=== PATIENT | male | born 1950 | race Caucasian/White ===

== ENCOUNTER → 2016-11-06 | Outpatient (REF) | payer BC ==
[~2016-11-06] MED LIST: /OXAZ10CA; /PANT40TA; /THIA10TA; /THIA10TA OR; ASPI81TA45 OR; ATEN25TA PO; ATEN50TA2 OR; ATIV1TAB2; ATOR1TAB21 PO; BABY81CH; FOLI1TAB; FOLI1TAB OR; GLUC500T; JANU100T PO; JANUVIA; LISI5TAB OR; METF500T4 OR; MULTIVIT; OXAZ15CA2 OR; PRIN20TA3; SILD50TA PO; TENO25TA; TRIC145T19; VITMTA PO; VYTO10TA5; januvia PO
== END ==
LOC: M LAB REF 12:07
PROVIDERS: ATTEND Internal Medicine
DX: F10.21 Alcohol dependence, in remission (principal)
CPT/HCPCS: 82977; G0480

== ENCOUNTER → 2017-01-23 | Outpatient (REF) | payer MEDICARE | LOC: M LAB REF 13:02 | PROVIDERS: ATTEND Internal Medicine | DX: F10.21 Alcohol dependence, in remission (principal) ==

== ENCOUNTER 2017-01-28 14:54 | Inpatient (IN) | payer MEDICARE ==
[~2017-01-28] VITALS: Ht 167.6 cm; Wt 89.3 kg
[~2017-01-28 14:54] MED LIST changes: -ATEN25TA PO; -ATOR1TAB21 PO; -JANU100T PO; -SILD50TA PO; -VITMTA PO
[2017-01-28] MEDS ORDERED: LORazepam 2 MG/ML VIAL (J2060) IV STA (15:23)
[2017-01-28] MEDS ORDERED: LORazepam 1 MG TAB PO ONE (15:30)
[2017-01-28] MEDS ORDERED: MULTIVITAMIN -ADULT INJECTION 10 ML, THIAMINE INJection 100 MG, FOLIC ACID 1 MG in NS 1... IV ONE (15:30)
[2017-01-28 16:03] LABS: BASO # 0.1 10^3/uL (0.0-0.2); BASO % 0.7 % (0.0-1.0); EOS % 0.3 % (0.0-3.0); IMMATURE GRANULOCYTE % 0.2 % (0-0); LYMPH # 0.8 10^3/uL (1.5-4.5); LYMPH % 8.9 % (24.0-44.0); MEAN CORPUSCULAR HEMOGLOBIN 34.5 pg (27.0-33.0); MEAN CORPUSCULAR HGB CONC 33.6 g/dl (32.0-36.5); MEAN CORPUSCULAR VOLUME 102.5 fl (80.0-96.0); MONO # 1.3 10^3/uL (0.0-0.8); MONO % 14.3 % (0.0-5.0); NEUTROPHILS # 6.7 10^3/uL (1.8-7.7); NEUTROPHILS % 75.6 % (36.0-66.0); PLATELET COUNT, AUTOMATED 128 10^3/uL (150-450); RED CELL DISTRIBUTION WIDTH 13.2 % (11.5-14.5); WHITE BLOOD COUNT 8.9 10^3/uL (4.0-10.0)
[2017-01-28] MEDS ORDERED: SILD50TA PO (16:07)
[2017-01-28] MEDS ORDERED: JANU100T PO (16:07)
[2017-01-28] MEDS ORDERED: ATEN25TA PO (16:07)
[2017-01-28] MEDS ORDERED: ATOR1TAB21 PO (16:07)
[2017-01-28] MEDS ORDERED: VITMTA PO (16:07)
[2017-01-28 16:28] LABS: ALBUMIN 3.4 GM/DL (3.2-5.2); ALBUMIN/GLOBULIN RATIO 0.85 (1.00-1.93); ALKALINE PHOSPHATASE 102 U/L (45-117); ALT/SGPT 121 U/L (12-78); ANION GAP 12 MEQ/L (8-16); AST/SGOT 158 U/L (15-37); BILIRUBIN,DIRECT 1.4 MG/DL (0.0-0.2); BILIRUBIN,TOTAL 2.3 MG/DL (0.2-1.0); BLOOD UREA NITROGEN 25 MG/DL (7-18); CALCIUM LEVEL 8.6 MG/DL (8.8-10.2); CARBON DIOXIDE LEVEL 25 MEQ/L (21-32); CHLORIDE LEVEL 100 MEQ/L (98-107); CREATININE FOR GFR 1.03 MG/DL (0.70-1.30); GLOMERULAR FILTRATION RATE > 60.0 (>49); GLUCOSE, FASTING 257 MG/DL (80-110); SODIUM LEVEL 137 MEQ/L (136-145); TOTAL PROTEIN 7.4 GM/DL (6.4-8.2)
--- NOTE | 2017-01-28 16:33 | REP ---
Chest two views HISTORY: Shortness of breath Comparison: 04/08/2011 The lungs are clear. The heart is normal in size. The pulmonary vasculature is normal in appearance. The bony structure is intact. IMPRESSION: No acute disease. Signed by Jules Foy MD 01/28/2017 04:24 P
[2017-01-28 17:55] LABS: METHADONE URINE NEGATIVE (NEGATIVE)
[2017-01-28] MEDS ORDERED: LORazepam 2 MG TAB PO PRN (18:15)
[2017-01-28] MEDS ORDERED: FUROSEMIDE 40 MG/4 ML VIAL (J1940) IV ONE (18:30)
[2017-01-28] MEDS ORDERED: DEXTROSE 50% 50 ML SYRINGE IV PRN (19:15)
[2017-01-28] MEDS ORDERED: GLUCOSE 4 GM CHEW TABLET PO PRN (19:15)
[2017-01-28] MEDS ORDERED: GLUCAGON FOR INJ 1 MG VIAL (J1610) SC PRN (19:15)
--- NOTE | 2017-01-28 19:18 | HPEPDOC ---
General Date of Admission Jan 28, 2017 at 18:01 Primary Care Physician: Jr Lemus Collins Attending Physician: MUNA TALBERT MD Chief Complaint The patient is a 67-year-old male admitted with a reason for visit of Alcohol Withdrawal. Source: Patient, Family Exam Limitations: No limitations History of Present Illness Mr. Diaz is a 67-year-old male who presents to the emergency department with tremors, gait unsteadiness, shortness of breath, diaphoresis. He has been an alcoholic in the past, he has gone through detox programs and successfully quit drinking, however approximately 4 months ago he did resume drinking. He admits to drinking approximately 1 L per day of wine. He states that his last drink was approximately Saturday night or Saturday morning (3 days ago) he had been tremulous, however this morning his symptoms were significantly worse even to the point where he was unable to walk, and he became extremely short of breath, therefore he decided to present to the emergency department. While in the emergency department he received a total of 2 mg of Ativan, and a banana bag him, and most of his symptoms have improved, he does remain quite tremulous however. Home Medications Scheduled Aspirin (Aspirin Ec Lo-Dose) 81 Mg Tab, 81 MG OR DAILY, (Reported) Atenolol (Atenolol) 25 Mg Tab, 25 MG PO DAILY, (Reported) Atorvastatin Calcium (Atorvastatin Calcium) 20 Mg Tab, 20 MG PO QHS, (Reported) Lisinopril (Lisinopril) 5 Mg Tab, 5 MG OR DAILY, (Reported) Multivitamins *[facility] STOCKED* (Thera M Plus *[facility] STOCKED*) 1 Tab Tab, 1 TAB PO DAILY, (Reported) Sitagliptin Phosphate (Januvia) 100 Mg Tab, 100 MG PO DAILY, (Reported) Scheduled PRN Sildenafil Citrate (Viagra) 50 Mg Tab, 50 MG PO ASDIRECTED PRN for ERECTILE DYSFUNCTION, (Reported) Allergies Coded Allergies: Penicillins (Verified Allergy, Unknown, 07/28/12) Penicillins Cross Reactors (Verified Allergy, Unknown, 07/28/12) Past Medical History Medical History Diabetes mellitus type 2 Hypertension Hyperlipidemia 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 Father of hyperthyroidism and heart failure around age 40. He has an aunt and a maternal grandmother who suffer from macular degeneration Social History * Smoker: former Smoker (he quit over 5 years ago, prior to that he smoked one pack per day for 40+ years) Alcohol: heavy (had quit previously, however in the past 4 months he had been drinking 1 L of wine per day, he quit approximately 3 days ago) Drugs: denies Recent Travel/Sick Contacts: Denies: Recent travel Psychosocial History: No pertinent psych hx Review of Symptoms Constitutional: Reports: Chills, Fever, Malaise, Weakness, Fatigue, Denies: Night Sweats ENT: Denies: Head Aches, Ear Pain, Dysphagia Skin: Reports: Bruising, Denies: Rash, Lesions, Breakdown Pulmonary: Denies: Dyspnea, Cough Cardiovascular: Denies: Chest Pain, Palpitations, Orthopnea, Paroxysmal Noc. Dyspnea, Lt Headedness Gastrointestinal: Denies: Nausea, Vomiting, Abdominal Pain, Diarrhea Genitourinary: Denies: Dysuria, Frequency, Incontinence, Retention Hematologic: Denies: Bruising, Bleeding Excessively Musculoskeletal: Denies: Neck Pain, Back Pain, Joint Pain, Muscle Pain, Spasms Neurological: Reports: Incoordination, Other Symptoms (tremors), Denies: Weakness, Numbness, Change in speech, Confusion Psych: Reports: Mood Normal, Denies: Depression, Memory Issues Physical Examination General Exam: Positive: Alert, Cooperative, Mild Distress Eye Exam: Positive: PERRLA, Conjunctiva & lids normal, EOMI, Sclera icteric ( mild) ENT Exam: Positive: Atraumatic, Mucous membr. moist/pink, Pharynx Normal Neck Exam: Positive: Supple, Other (spider telangiectasias noticed on the anterior chest), Negative: JVD, thyromegaly Chest Exam: Positive: Clear to auscultation, Normal air movement, Negative: Rales, Rhonchi, Wheezing Heart Exam: Positive: Tachycardic, Regular Rhythm, Normal S1, Normal S2, Negative: Murmurs, Rubs Telemetry: Positive: No significant arrhythmia Abdomen Exam: Positive: Normal bowel sounds, Soft, Hepatospenomegaly ( hepatomegaly noted approximately 3 cm below the right costal margin, spleen was not palpable), Other (obese abdomen, however it is not distended, there is no tenderness or guarding), Negative: Tenderness Extremity Exam: Positive: Edema (1+ pitting edema to just above the ankles bilaterally, left worse than right), Normal pulses, Negative: Clubbing, Cyanosis Skin Exam: Positive: Nl turgor and temperature, Negative: Breakdown, Lesion Neuro Exam: Positive: Normal Speech, Cranial Nerves 3-12 NL, Other (he does have a resting tremor, asterixis ) Psych Exam: Positive: Mental status NL, Mood NL, Oriented x 3 Vital Signs Vital Signs Date Time Temp Pulse Resp B/P (MAP) Pulse Ox O2 Delivery O2 Flow Rate FiO2 01/28/17 16:07 01/28/17 14:55 97.8 113 24 96 Nasal Cannula 2.0 Laboratory Data Labs 24H Laboratory Tests 2 01/28/17 15:55: Immature Granulocyte % (Auto) 0.2H, White Blood Count 8.9, Red Blood Count 4.35 , Hemoglobin 15.0, Hematocrit 44.6, Mean Corpuscular Volume 102.5H, Mean Corpuscular Hemoglobin 34.5H, Mean Corpuscular Hemoglobin Concent 33.6, Red Cell Distribution Width 13.2, Platelet Count 128L, Neutrophils (%) (Auto) 75.6H , Lymphocytes (%) (Auto) 8.9L, Monocytes (%) (Auto) 14.3H, Eosinophils (%) (Auto ) 0.3, Basophils (%) (Auto) 0.7, Neutrophils # (Auto) 6.7, Lymphocytes # (Auto) 0.8L, Monocytes # (Auto) 1.3H, Eosinophils # (Auto) 0.0, Basophils # (Auto) 0.1 , Immature Granulocyte # (Auto) 0.0, Nucleated Red Blood Cells % (auto) 0.0, Anion Gap 12, Glomerular Filtration Rate > 60.0, Calcium Level 8.6L, Aspartate Amino Transf (AST/SGOT) 158H, Alanine Aminotransferase (ALT/SGPT) 121H, Alkaline Phosphatase 102, Total Bilirubin 2.3H, Direct Bilirubin 1.4H, Total Creatine Kinase 122, Creatine Kinase MB 1.4, Creatine Kinase MB Relative Index 1.14, Troponin I < 0.02, Total Protein 7.4, Albumin 3.4, Albumin/Globulin Ratio 0.85L, Ethyl Alcohol Level < 0.003 01/28/17 17:21: Urine Amphetamines Screen NEGATIVE, Urine Benzodiazepines Screen NEGATIVE, Urine Opiates Screen NEGATIVE, Urine Methadone Screen NEGATIVE, Urine Barbiturates Screen NEGATIVE, Urine Phencyclidine Screen NEGATIVE, Urine Cocaine Metabolite Screen NEGATIVE, Urine Cannabinoids Screen NEGATIVE CBC/BMP Laboratory Tests 01/28/17 15:55 Red Blood Count 4.35, Mean Corpuscular Volume 102.5 H, Mean Corpuscular Hemoglobin 34.5 H, Mean Corpuscular Hemoglobin Concent 33.6, Red Cell Distribution Width 13.2, Neutrophils (%) (Auto) 75.6 H, Lymphocytes (%) (Auto) 8.9 L, Monocytes (%) (Auto) 14.3 H, Eosinophils (%) (Auto) 0.3, Basophils (%) ( Auto) 0.7, Neutrophils # (Auto) 6.7, Lymphocytes # (Auto) 0.8 L, Monocytes # ( Auto) 1.3 H, Eosinophils # (Auto) 0.0, Basophils # (Auto) 0.1 Problems (1) Alcohol withdrawal Status: Acute (2) Type 2 diabetes mellitus Status: Chronic (3) Hypertension Status: Chronic (4) Hyperlipidemia Status: Chronic (5) Combined congestive systolic and diastolic heart failure Status: Chronic (6) Thrombocytopenia Status: Chronic (7) Macrocytosis Status: Chronic (8) History of hemicolectomy Status: Chronic (9) Hyperbilirubinemia Status: Acute (10) Transaminitis Status: Acute (11) Prerenal azotemia Status: Acute Plan / VTE VTE Prophylaxis Ordered?: Yes (teds and sequentials given his thrombocytopenia and easy bruisability) Plan Plan Will prescribe Serax scheduled as well as [facility] protocol for as needed lorazepam. He is already been started on a banana bag in the ED, we will provide him with daily supplementation and folic acid and thiamine. Although beta blockers are not recommended for the treatment of tremor in DT's, we will continue him on his usual home dose of atenolol such that he will not suffer from tachycardia and hypertension. We will continue his home dose of Januvia, although it does appear that he has uncontrolled diabetes mellitus, therefore we will also do sliding scale insulin before meals and at bedtime. Given his history of severe combined systolic and diastolic congestive heart failure and his edema on exam, I will administer one dose of IV Lasix at this time, and we can reassess his volume status in the morning. DENISA SIM DO Jan 28, 2017 19:18
[2017-01-28] MEDS: FOLIC ACID 1 MG TAB PO SCH (19:43)
[2017-01-28] MEDS: ATORVASTATIN 20 MG TAB PO SCH (20:56)
[2017-01-28] MEDS: THIAMINE 100 MG TAB PO SCH (20:57)
[2017-01-28] MEDS: HumaLOG INSULIN (NovoLOG) PER UNIT SC SCH (20:59)
[2017-01-28] MEDS: OXAZEPAM 10 MG CAP PO SCH (21:40)
[2017-01-28 21:59] VITALS: BP 131/85
[2017-01-29] VITALS (9 sets, daily range): BP systolic 104–129; BP diastolic 60–83
[2017-01-29] MEDS: OXAZEPAM 10 MG CAP PO SCH ×3 (05:42→21:16)
--- NOTE | 2017-01-29 05:46 | ECGEPIP ---
Stationary ECG Study [facility] - ED Test Date: 2017-01-28 Pat Name: PARVEEN TELLEZ Department: Room: - Gender: M [employer] Baster: hai : 1950 Requested By: MICHEAL HUFFMAN Order Number: [id number] Reading MD: Spike Coe Measurements Intervals [place] Rate: 98 P: 18 NM: 172 QRS: -14 QRSD: 99 T: 67 QT: 355 QTc: 454 Interpretive Statements SINUS RHYTHM LOW QRS VOLTAGE POSSIBLE ANTERIOR MYOCARDIAL INFARCTION, OF INDETERMINATE AGE SIMILAR TO 04/08/11 Electronically Signed On 01-29-2017 5:46:22 EDT by Spike Coe
[2017-01-29 07:18] LABS: MEAN CORPUSCULAR HEMOGLOBIN 34.3 pg (27.0-33.0); MEAN CORPUSCULAR HGB CONC 33.9 g/dl (32.0-36.5); MEAN CORPUSCULAR VOLUME 101.4 fl (80.0-96.0); WHITE BLOOD COUNT 5.3 10^3/uL (4.0-10.0)
[2017-01-29 07:27] LABS: IMMATURE PLATELET FRACTION % 3.5 % (0.0-10.9)
[2017-01-29 07:37] LABS: ANION GAP 7 MEQ/L (8-16); BLOOD UREA NITROGEN 24 MG/DL (7-18); CALCIUM LEVEL 7.7 MG/DL (8.8-10.2); CARBON DIOXIDE LEVEL 29 MEQ/L (21-32); CHLORIDE LEVEL 102 MEQ/L (98-107); GLOMERULAR FILTRATION RATE > 60.0 (>49); GLUCOSE, FASTING 137 MG/DL (80-110); POTASSIUM SERUM 4.2 MEQ/L (3.5-5.1); SODIUM LEVEL 138 MEQ/L (136-145)
[2017-01-29] MEDS: HumaLOG INSULIN (NovoLOG) PER UNIT SC SCH ×4 (08:03→21:00)
[2017-01-29] MEDS: SITagliptin 50 MG TAB (JANUVIA) PO SCH (08:04)
[2017-01-29] MEDS: MULTIVITAMINS/MINERALS THERAP 1 TAB PO SCH (08:04)
[2017-01-29] MEDS: ASPIRIN 81 MG ENTERIC TAB PO SCH (08:04)
[2017-01-29] MEDS: FOLIC ACID 1 MG TAB PO SCH (08:04)
[2017-01-29] MEDS: THIAMINE 100 MG TAB PO SCH ×2 (08:04→21:16)
[2017-01-29] MEDS: ATENOLOL 25 MG TAB PO SCH (08:05)
[2017-01-29] MEDS ORDERED: ENOXAPARIN 40 MG/0.4 ML SYRINGE (J1650) SC SCH (09:00)
[2017-01-29] MEDS: LISINOPRIL 5 MG TAB PO SCH (10:20)
--- NOTE | 2017-01-29 20:47 | IPNPDOC ---
Subjective Date Seen The patient was seen on 01/29/17. Subjective Chief Complaint/HPI The patient is a 67-year-old male admitted with a reason for visit of Alcohol Withdrawal. Events since last encounter He denied having any events overnight. He seems to be doing quite well on the scheduled Serax, he is feeling significantly better this morning and did not require any doses of Ativan per the [facility] protocol. He does feel much less shaky , however he has not attempted to get out of bed yet. He feels that he would like to try working with physical therapy today. General: Reports: Normal Appetite, Denies: Fatigue, Malaise Constitutional: Denies: Chills, Fever, Night Sweats ENT: Denies: Head Aches, Sore Throat Skin: Denies: Rash, Lesions, Bruising Pulmonary: Denies: Dyspnea, Cough Cardiovascular: Denies: Chest Pain, Palpitations Gastrointestinal: Denies: Nausea, Vomiting, Abdominal Pain, Diarrhea, Constipation Neurological: Denies: Weakness Objective Physical Examination General Exam: Positive: Alert, Cooperative, No Acute Distress Eye Exam: Positive: Conjunctiva & lids normal, EOMI, Sclera icteric (mild) ENT Exam: Positive: Atraumatic, Mucous membr. moist/pink, Pharynx Normal Neck Exam: Positive: Supple, Other (spider telangiectasias noticed on the anterior chest), Negative: JVD, thyromegaly Chest Exam: Positive: Clear to auscultation, Normal air movement Heart Exam: Positive: Rate Normal, Regular Rhythm, Normal S1, Normal S2, Negative: Murmurs, Rubs Telemetry: Positive: No significant arrhythmia Abdomen Exam: Positive: Normal bowel sounds, Soft, Hepatospenomegaly ( hepatomegaly noted approximately 3 cm below the right costal margin, spleen was not palpable), Other (obese abdomen, however it is not distended, there is no tenderness or guarding), Negative: Tenderness Extremity Exam: Positive: Edema (1+ pitting edema to the ankles), Normal pulses , Negative: Clubbing, Cyanosis Skin Exam: Positive: Nl turgor and temperature, Negative: Breakdown, Lesion Neuro Exam: Positive: Normal Speech, Cranial Nerves 3-12 NL, Other (minimal resting tremor, significantly improved from yesterday. No asterixis ) Psych Exam: Positive: Mental status NL, Mood NL, Oriented x 3 Assessment /Plan Problems (1) Alcohol withdrawal Status: Acute Problem Text: continue daily MVI, thiamine, folate (2) Type 2 diabetes mellitus Status: Chronic Problem Text: continue home januvia; SSI while in house (3) Hypertension Status: Chronic Problem Text: continue home beta abbie and ACEI (4) Hyperlipidemia Status: Chronic Problem Text: continue home statin (5) Combined congestive systolic and diastolic heart failure Status: Chronic Problem Text: currently euvolemic; continue to monitor (6) Thrombocytopenia Status: Chronic (7) Macrocytosis Status: Chronic (8) History of hemicolectomy Status: Chronic (9) Hyperbilirubinemia Status: Acute Problem Text: likely from acute EtOH ingestion; continue to monitor (10) Transaminitis Status: Acute Problem Text: likely from acute EtOH ingestion; continue to monitor (11) Prerenal azotemia Status: Acute Plan/VTE VTE Prophylaxis Ordered?: Yes (teds and sequentials given his thrombocytopenia and easy bruisability) Plan Continue with scheduled Serax and as needed lorazepam per the [facility] protocol. He will work with physical therapy today, and we will see how that goes, and reassess him again clinically tomorrow. VS, I&O, 24H, [facility] Vital Signs/I&O Vital Signs Date Time Temp Pulse Resp B/P (MAP) Pulse Ox O2 Delivery O2 Flow Rate FiO2 01/29/17 20:00 98.2 98 20 122/76 (91) 97 Room Air 01/28/17 20:10 2.0 I&O- Last 24 Hours up to 6 AM 01/30/17 06:00 Intake Total 990 ml Output Total 450 ml Balance 540 ml Laboratory Data 24H LABS Laboratory Tests 2 01/28/17 20:56: Bedside Glucose (Misc Panel) 159H 01/29/17 07:08: Immature Platelet Fraction 3.5, Anion Gap 7L, Glomerular Filtration Rate > 60.0 , Blood Urea Nitrogen 24H, Creatinine 0.80, Sodium Level 138, Potassium Level 4.2, Chloride Level 102, Carbon Dioxide Level 29, Calcium Level 7.7L 01/29/17 11:31: Bedside Glucose (Misc Panel) 160H 01/29/17 17:26: Bedside Glucose (Misc Panel) 168H CBC/BMP Laboratory Tests 01/29/17 07:08 Red Blood Count 3.67 L, Mean Corpuscular Volume 101.4 H, Mean Corpuscular Hemoglobin 34.3 H, Mean Corpuscular Hemoglobin Concent 33.9, Red Cell Distribution Width 13.0, Calcium Level 7.7 L Attending Note Attending Note I have seen and examined the above patient and agree with the above documentation. DENISA SIM DO Jan 29, 2017 20:47 NAV ARNOLD Jan 30, 2017 17:41
[2017-01-29] MEDS: ATORVASTATIN 20 MG TAB PO SCH (21:16)
[2017-01-30] VITALS (7 sets, daily range): BP systolic 107–143; BP diastolic 64–87
[2017-01-30 05:43] LABS: MEAN CORPUSCULAR HEMOGLOBIN 34.7 pg (27.0-33.0); MEAN CORPUSCULAR HGB CONC 33.9 g/dl (32.0-36.5); MEAN CORPUSCULAR VOLUME 102.1 fl (80.0-96.0); WHITE BLOOD COUNT 7.2 10^3/uL (4.0-10.0)
[2017-01-30] MEDS: OXAZEPAM 10 MG CAP PO SCH (05:45)
[2017-01-30 06:03] LABS: ALBUMIN 2.7 GM/DL (3.2-5.2); ALBUMIN/GLOBULIN RATIO 0.71 (1.00-1.93); ALKALINE PHOSPHATASE 86 U/L (45-117); ALT/SGPT 83 U/L (12-78); ANION GAP 7 MEQ/L (8-16); AST/SGOT 98 U/L (15-37); BILIRUBIN,TOTAL 2.7 MG/DL (0.2-1.0); BLOOD UREA NITROGEN 25 MG/DL (7-18); CALCIUM LEVEL 8.3 MG/DL (8.8-10.2); CARBON DIOXIDE LEVEL 24 MEQ/L (21-32); CHLORIDE LEVEL 103 MEQ/L (98-107); CREATININE FOR GFR 0.75 MG/DL (0.70-1.30); GLOMERULAR FILTRATION RATE > 60.0 (>49); GLUCOSE, FASTING 151 MG/DL (80-110); MAGNESIUM LEVEL 1.8 MG/DL (1.8-2.4); POTASSIUM SERUM 4.8 MEQ/L (3.5-5.1); SODIUM LEVEL 134 MEQ/L (136-145); TOTAL PROTEIN 6.5 GM/DL (6.4-8.2)
[2017-01-30] MEDS: LISINOPRIL 5 MG TAB PO SCH (08:19)
[2017-01-30] MEDS: MULTIVITAMINS/MINERALS THERAP 1 TAB PO SCH (08:20)
[2017-01-30] MEDS: THIAMINE 100 MG TAB PO SCH ×2 (08:20→21:28)
[2017-01-30] MEDS: ATENOLOL 25 MG TAB PO SCH (08:20)
[2017-01-30] MEDS: ASPIRIN 81 MG ENTERIC TAB PO SCH (08:20)
[2017-01-30] MEDS: FOLIC ACID 1 MG TAB PO SCH (08:21)
[2017-01-30] MEDS: HumaLOG INSULIN (NovoLOG) PER UNIT SC SCH ×4 (08:22→21:00)
[2017-01-30] MEDS: SITagliptin 50 MG TAB (JANUVIA) PO SCH (10:27)
[2017-01-30] MEDS ORDERED: OXAZEPAM 10 MG CAP PO ONE (18:00)
--- NOTE | 2017-01-30 19:34 | IPNPDOC ---
Subjective Date Seen The patient was seen on 01/30/17. Subjective Chief Complaint/HPI The patient is a 67-year-old male admitted with a reason for visit of Alcohol Withdrawal. Events since last encounter Mr. Diaz did not have any events overnight, he states that he was able to use the walker to get to the commode in the room, however General: Reports: Normal Appetite, Denies: Fatigue, Malaise Constitutional: Denies: Chills, Fever, Night Sweats ENT: Denies: Head Aches, Sore Throat Skin: Denies: Rash, Lesions, Bruising Pulmonary: Denies: Dyspnea, Cough Cardiovascular: Denies: Chest Pain, Palpitations Gastrointestinal: Denies: Nausea, Vomiting, Abdominal Pain, Diarrhea, Constipation Musculoskeletal: Reports: Other Symptoms (unsteady gait) Neurological: Reports: Other Symptoms (tremors), Denies: Weakness Objective Physical Examination General Exam: Positive: Alert, Cooperative, No Acute Distress ENT Exam: Positive: Atraumatic, Mucous membr. moist/pink, Pharynx Normal Neck Exam: Positive: Supple, Other (spider telangiectasias noticed on the anterior chest) Chest Exam: Positive: Clear to auscultation, Normal air movement Heart Exam: Positive: Rate Normal, Regular Rhythm, Negative: Murmurs, Rubs Telemetry: Positive: No significant arrhythmia Abdomen Exam: Positive: Normal bowel sounds, Soft, Hepatospenomegaly ( hepatomegaly noted approximately 3 cm below the right costal margin, spleen was not palpable), Other (obese abdomen, however it is not distended, there is no tenderness or guarding), Negative: Tenderness Extremity Exam: Positive: Edema (1+ pitting edema to the ankles), Normal pulses , Negative: Clubbing, Cyanosis Skin Exam: Positive: Nl turgor and temperature, Negative: Breakdown, Lesion Neuro Exam: Positive: Normal Speech, Cranial Nerves 3-12 NL, Other (minimal resting tremor, significantly improved from yesterday. No asterixis ) Psych Exam: Positive: Mental status NL, Mood NL, Oriented x 3 Assessment /Plan Problems (1) Alcohol withdrawal Status: Acute Problem Text: continue daily MVI, thiamine, folate. We will begin to taper his Serax today, and he will work with physical therapy in preparation for going home. (2) Type 2 diabetes mellitus Status: Chronic Problem Text: continue home januvia; SSI while in house (3) Hypertension Status: Chronic Problem Text: continue home beta abbie and ACEI (4) Hyperlipidemia Status: Chronic Problem Text: continue home statin (5) Combined congestive systolic and diastolic heart failure Status: Chronic Problem Text: currently euvolemic; continue to monitor (6) Thrombocytopenia Status: Chronic (7) Macrocytosis Status: Chronic (8) History of hemicolectomy Status: Chronic (9) Hyperbilirubinemia Status: Acute Problem Text: Stable (10) Transaminitis Status: Acute Problem Text: likely from acute EtOH ingestion; improving, continue to monitor (11) Prerenal azotemia Status: Acute Plan/VTE VTE Prophylaxis Ordered?: Yes (teds and sequentials given his thrombocytopenia and easy bruisability) VS, I&O, 24H, [facility] Vital Signs/I&O Vital Signs Date Time Temp Pulse Resp B/P (MAP) Pulse Ox O2 Delivery O2 Flow Rate FiO2 01/30/17 16:00 97 122/77 01/30/17 16:00 97.5 18 97 Room Air 01/30/17 04:00 1.0 I&O- Last 24 Hours up to 6 AM 01/31/17 06:00 Intake Total 1050 ml Output Total 0 ml Balance 1050 ml Laboratory Data 24H LABS Laboratory Tests 2 01/29/17 21:18: Bedside Glucose (Misc Panel) 223H 01/30/17 01:59: Magnesium Level 1.9 01/30/17 05:18: Magnesium Level 1.8, Anion Gap 7L, Glomerular Filtration Rate > 60.0, Blood Urea Nitrogen 25H, Creatinine 0.75, Sodium Level 134L, Potassium Level 4.8, Chloride Level 103, Carbon Dioxide Level 24, Calcium Level 8.3L, Aspartate Amino Transf (AST/SGOT) 98H, Alanine Aminotransferase (ALT/SGPT) 83H, Alkaline Phosphatase 86, Total Bilirubin 2.7H, Total Protein 6.5, Albumin 2.7#L, Albumin/ Globulin Ratio 0.71L 01/30/17 11:49: Bedside Glucose (Misc Panel) 179H CBC/BMP Laboratory Tests 01/30/17 05:18 Red Blood Count 3.78 L, Mean Corpuscular Volume 102.1 H, Mean Corpuscular Hemoglobin 34.7 H, Mean Corpuscular Hemoglobin Concent 33.9, Red Cell Distribution Width 13.0, Calcium Level 8.3 L, Aspartate Amino Transf (AST/SGOT) 98 H, Alanine Aminotransferase (ALT/SGPT) 83 H, Alkaline Phosphatase 86, Total Bilirubin 2.7 H, Total Protein 6.5, Albumin 2.7 #L GME ATTESTATION GME ATTESTATION My preceptor for this patient encounter was physically present in the building during the encounter and was fully available. As needed, all aspects of the patient interview, examination, medical decision making process, and medical care plan development were reviewed and approved by the preceptor. Preceptor is aware and concurs with the plan as stated in the body of this note and will attest to such by his/her cosignature. ATTENDING NOTE I have seen and examined the above patient and agree with the above documentation. DENISA SIM DO Jan 30, 2017 19:33 NAV ARNOLD Jan 31, 2017 18:00
[2017-01-30] MEDS ORDERED: OXAZEPAM 10 MG CAP PO SCH (21:00)
[2017-01-30] MEDS ORDERED: OXAZEPAM 10 MG CAP PO PRN (21:00)
[2017-01-30] MEDS: ATORVASTATIN 20 MG TAB PO SCH (21:28)
[2017-01-31] VITALS: BP 141/91
[2017-01-31 04:00] VITALS: BP 135/78
[2017-01-31 05:21] LABS: MEAN CORPUSCULAR HEMOGLOBIN 34.6 pg (27.0-33.0); WHITE BLOOD COUNT 6.3 10^3/uL (4.0-10.0)
[2017-01-31 05:43] LABS: ALBUMIN 2.5 GM/DL (3.2-5.2); ALBUMIN/GLOBULIN RATIO 0.71 (1.00-1.93); ALKALINE PHOSPHATASE 82 U/L (45-117); ALT/SGPT 70 U/L (12-78); ANION GAP 8 MEQ/L (8-16); AST/SGOT 67 U/L (15-37); BILIRUBIN,TOTAL 2.4 MG/DL (0.2-1.0); BLOOD UREA NITROGEN 22 MG/DL (7-18); CALCIUM LEVEL 8.3 MG/DL (8.8-10.2); CARBON DIOXIDE LEVEL 25 MEQ/L (21-32); CHLORIDE LEVEL 103 MEQ/L (98-107); CREATININE FOR GFR 0.64 MG/DL (0.70-1.30); GLOMERULAR FILTRATION RATE > 60.0 (>49); GLUCOSE, FASTING 138 MG/DL (80-110); MAGNESIUM LEVEL 1.9 MG/DL (1.8-2.4); SODIUM LEVEL 136 MEQ/L (136-145)
[2017-01-31 06:25] LABS: IMMATURE PLATELET FRACTION % 5.5 % (0.0-10.9)
[2017-01-31 08:00] VITALS: BP 104/61
[2017-01-31] MEDS: HumaLOG INSULIN (NovoLOG) PER UNIT SC SCH ×2 (09:43→12:00)
[2017-01-31] MEDS: FOLIC ACID 1 MG TAB PO SCH (09:43)
[2017-01-31] MEDS: MULTIVITAMINS/MINERALS THERAP 1 TAB PO SCH (09:43)
[2017-01-31] MEDS: ASPIRIN 81 MG ENTERIC TAB PO SCH (09:44)
[2017-01-31] MEDS: LISINOPRIL 5 MG TAB PO SCH (09:44)
[2017-01-31] MEDS: SITagliptin 50 MG TAB (JANUVIA) PO SCH (09:44)
[2017-01-31 09:45] VITALS: BP 104/61
[2017-01-31] MEDS: THIAMINE 100 MG TAB PO SCH (09:45)
[2017-01-31] MEDS: ATENOLOL 25 MG TAB PO SCH (09:45)
--- NOTE | 2017-01-31 17:55 | DS.PDOC ---
Discharge Summary General Date of Admission Jan 28, 2017 at 18:01 Date of Discharge 01/31/2017 Discharge Summary PRIMARY CARE PHYSICIAN: Dr. Lemus ATTENDING AT TIME OF DISCHARGE: Dr. Courtney Garzon DISCHARGE DIAGNOS(E)S: 1. Alcohol withdrawal 2. Diabetes mellitus type 2 3. Hypertension 4. Hyperlipidemia 5. Combined congestive systolic and diastolic heart failure 6. Leukocytopenia 7. Macrocytosis 8. History of hemicolectomy in 9. Hyperbilirubinemia 10. Transaminitis 1. Prerenal azotemia HPI & HOSPITAL COURSE: Mr. Diaz does have a history of alcoholism, he has been through rehabilitation multiple times, and he has been successful for years that time in the past. However, approximately 4 months ago he did begin drinking again, he was drinking up to 1 L of wine per day. He decided that he needed to quit approximately 3 days prior to coming in the hospital, he began experiencing tremors, sweating, fatigue, tachycardia, and weakness sufficient that he was unable to walk even a few steps. Upon presentation to the emergency department it was noted that he was suffering from the initial stages of alcohol withdrawal , although it does not appear that he was in full-blown delirium tremens. He was appropriately treated with thiamine, multivitamin, long-acting benzodiazepines, as well as short acting benzodiazepines per the [facility] protocol. During his hospitalization he was treated with Serax 10 mg every 8 hours, and he never needed any short acting benzodiazepines. This was tapered down to every 12 hours, and then on today the day of discharge he only had 1 dose, and essentially all of the aforementioned symptoms have resolved. He tells me that he plans to go to [facility] for further outpatient EtOH rehab. It would be important to note that 2 nights in a row he did have 2 episodes of ventricular tachycardia (both nights he had 2 episodes) with a sequence of beats ranging from 14-16 in a row. Electrolytes were all WNL. His most recent echocardiogram in [facility] was from 2010, but did show combined systolic and diastolic heart failure. I did mention this to cardiology who recommended that he should have outpatient follow-up, and recommended he should get a repeat echocardiogram, and would likely require at least stress test as well. On today the day of discharge the patient is feeling significantly better. He is no longer tremulous, he performed well per PT, and he appears stable for discharge at this time. The remainder of his review of systems is entirely negative. PHYSICAL EXAMINATION ON DISCHARGE: GENERAL: Awake, alert, oriented 3. He is in a good mood CARDIOVASCULAR EXAMINATION: Regular rate and rhythm, with no rubs, gallops, or murmur. RESPIRATORY EXAMINATION: Clear to auscultation bilaterally with no wheezes, rales, or rhonchi. ABDOMINAL EXAMINATION: Soft, nontender, nondistended. Bowel sounds present. EXTREMITIES: No clubbing. He does have trace edema in his feet bilaterally, the left ankle is slightly more swollen than the right, however this appears to be chronic in nature. 2+ pulses in the radial bilaterally. DISPOSITION: Home DISCHARGE INSTRUCTIONS: Follow-up with primary care provider Dr. Lemus within 7-10 days. Activity as tolerated, recommended a slow return to normal activities. Recommended 2 g sodium diet, and complete abstinence from alcohol. If symptoms return, or if you experience worsening of your symptoms, please call your doctor or return to the emergency department. DISCHARGE MEDICATIONS: No change in home medications as listed below ITEMS THAT NEED OUTPATIENT FOLLOWUP: Recommend outpatient referral to cardiology for evaluation of 14-16 beat runs of asymptomatic V-tach that occurred during the night while he was sleeping, in the setting of a patient with the past medical history of combined systolic and diastolic congestive heart failure, which is likely exacerbated by his history of alcoholism, diabetes, hypertension, and hyperlipidemia. My preceptor for this patient encounter was physically present in the building during the encounter and was fully available. As needed, all aspects of the patient interview, examination, medical decision making process, and medical care plan development were reviewed and approved by the preceptor. Preceptor is aware and concurs with the plan as stated in the body of this note and will attest to such by his/her cosignature. Vital Signs/I&Os Vital Signs Date Time Temp Pulse Resp B/P (MAP) Pulse Ox O2 Delivery O2 Flow Rate FiO2 01/31/17 09:45 104/61 01/31/17 04:00 98.0 92 18 94 Room Air 01/30/17 04:00 1.0 Laboratory Data Labs 24H Laboratory Tests 2 01/30/17 21:23: Bedside Glucose (Misc Panel) 145H 01/30/17 22:24: Magnesium Level 1.9 01/31/17 04:47: Magnesium Level 1.9, Nucleated Red Blood Cells % (auto) 0.0, Immature Platelet Fraction 5.5, Anion Gap 8, Glomerular Filtration Rate > 60.0, Blood Urea Nitrogen 22H, Creatinine 0.64L, Sodium Level 136, Potassium Level 4.0, Chloride Level 103, Carbon Dioxide Level 25, Calcium Level 8.3L, Aspartate Amino Transf ( AST/SGOT) 67H, Alanine Aminotransferase (ALT/SGPT) 70, Alkaline Phosphatase 82, Total Bilirubin 2.4H, Total Protein 6.0L, Albumin 2.5L, Albumin/Globulin Ratio 0.71L 01/31/17 09:06: Bedside Glucose (Misc Panel) 206H 01/31/17 11:51: Bedside Glucose (Misc Panel) 113 CBC/BMP Laboratory Tests 01/31/17 04:47 Red Blood Count 3.58 L, Mean Corpuscular Volume 102.0 H, Mean Corpuscular Hemoglobin 34.6 H, Mean Corpuscular Hemoglobin Concent 34.0, Red Cell Distribution Width 13.0, Calcium Level 8.3 L, Aspartate Amino Transf (AST/SGOT) 67 H, Alanine Aminotransferase (ALT/SGPT) 70, Alkaline Phosphatase 82, Total Bilirubin 2.4 H, Total Protein 6.0 L, Albumin 2.5 L FSBS Laboratory Tests Test 01/30/17 21:23 01/31/17 09:06 01/31/17 11:51 Range/Units Bedside Glucose (Misc Panel) 145 206 113 80-115 MG/DL Discharge Medications Scheduled Aspirin (Aspirin Ec Lo-Dose) 81 Mg Tab, 81 MG OR DAILY, (Reported) Atenolol (Atenolol) 25 Mg Tab, 25 MG PO DAILY, (Reported) Atorvastatin Calcium (Atorvastatin Calcium) 20 Mg Tab, 20 MG PO QHS, (Reported) Lisinopril (Lisinopril) 5 Mg Tab, 5 MG OR DAILY, (Reported) Multivitamins *[facility] STOCKED* (Thera M Plus *[facility] STOCKED*) 1 Tab Tab, 1 TAB PO DAILY, (Reported) Sitagliptin Phosphate (Januvia) 100 Mg Tab, 100 MG PO DAILY, (Reported) Scheduled PRN Sildenafil Citrate (Viagra) 50 Mg Tab, 50 MG PO ASDIRECTED PRN for ERECTILE DYSFUNCTION, (Reported) Allergies Coded Allergies: Penicillins (Verified Allergy, Unknown, 07/28/12) Penicillins Cross Reactors (Verified Allergy, Unknown, 07/28/12) Attending Note Attending Note I have seen and examined the above patient and agree with the above documentation. Time spent on discharge: >30 minutes DENISA SIM DO Jan 31, 2017 17:55 COURTNEY GARZON Feb 01, 2017 15:58
== END 2017-01-31 14:40 | disposition home or self-care (01) | DRG 897 ==
LOC: EDBD 14:54 → M ED 14:54 → M ED INP 18:01 → M ICU 01-29 14:21
PROVIDERS: ADMIT Internal Medicine; ATTEND Hospitalist
DX: F10.239 Alcohol dependence with withdrawal, unspecified (principal); I50.42 Chronic combined systolic (congestive) and diastolic (congestive) heart failure; E11.9 Type 2 diabetes mellitus without complications; E78.5 Hyperlipidemia, unspecified; J30.9 Allergic rhinitis, unspecified; Z79.82 Long term (current) use of aspirin; Z79.84 Long term (current) use of oral hypoglycemic drugs; Z88.0 Allergy status to penicillin; I11.0 Hypertensive heart disease with heart failure; Z87.891 Personal history of nicotine dependence

== ENCOUNTER → 2017-03-26 | Outpatient (REF) | payer MEDICARE ==
[~2017-03-26] MED LIST changes: +ATEN25TA PO; +ATOR1TAB21 PO; +ATOR40TA75 PO; +CARV6.25 PO; +JANU100T PO; +SILD50TA PO; +SPIR25TA2 PO; +VITMTA PO
[2017-03-26 15:55] LABS: BASO % 0.6 % (0.0-1.0); EOS # 0.2 10^3/uL (0.0-0.50); EOS % 2.4 % (0.0-3.0); IMMATURE GRANULOCYTE % 0.2 % (0-0); LYMPH # 1.3 10^3/uL (1.5-4.5); LYMPH % 20.8 % (24.0-44.0); MEAN CORPUSCULAR HEMOGLOBIN 33.4 pg (27.0-33.0); MEAN CORPUSCULAR HGB CONC 34.5 g/dl (32.0-36.5); MONO # 0.8 10^3/uL (0.0-0.8); MONO % 13.1 % (0.0-5.0); NEUTROPHILS # 3.9 10^3/uL (1.8-7.7); NEUTROPHILS % 62.9 % (36.0-66.0); PLATELET COUNT, AUTOMATED 117 10^3/uL (150-450); RED CELL DISTRIBUTION WIDTH 11.9 % (11.5-14.5); WHITE BLOOD COUNT 6.2 10^3/uL (4.0-10.0)
[2017-03-26 16:13] LABS: ALBUMIN 3.6 GM/DL (3.2-5.2); ALBUMIN/GLOBULIN RATIO 1.06 (1.00-1.93); ALKALINE PHOSPHATASE 61 U/L (45-117); ALT/SGPT 28 U/L (12-78); ANION GAP 5 MEQ/L (8-16); AST/SGOT 20 U/L (7-37); BILIRUBIN,TOTAL 0.8 MG/DL (0.2-1.0); BLOOD UREA NITROGEN 19 MG/DL (7-18); CALCIUM LEVEL 9.4 MG/DL (8.8-10.2); CARBON DIOXIDE LEVEL 29 MEQ/L (21-32); CHLORIDE LEVEL 103 MEQ/L (98-107); CREATININE FOR GFR 0.68 MG/DL (0.70-1.30); GLOMERULAR FILTRATION RATE > 60.0 (>49); GLUCOSE, FASTING 148 MG/DL (80-110); POTASSIUM SERUM 4.7 MEQ/L (3.5-5.1); SODIUM LEVEL 137 MEQ/L (136-145)
== END ==
LOC: M LABDRAW1 11:34
PROVIDERS: ATTEND Internal Medicine Cardiovascular Disease
DX: I47.2 Ventricular tachycardia (principal)

== ENCOUNTER 2017-03-27 12:44 | Day surgery (SDC) | payer MEDICARE ==
[~2017-03-27] VITALS: Ht 170.2 cm; Wt 83.9 kg
[2017-03-27] MEDS ORDERED: LR 1,000 ML IV ONE (13:00)
[2017-03-27] MEDS ORDERED: LIDOCAINE 1% SDV INJ 30 ML VIAL As Ordered ONE (14:12)
[2017-03-27] MEDS ORDERED: fentaNYL 100 MCG/2 ML INJECTION (J3010) As Ordered ONE (14:32)
[2017-03-27] MEDS ORDERED: MIDAZOLAM INJ 2 MG/2 ML VIAL (J2250) As Ordered ONE (14:32)
[2017-03-27 15:30] VITALS: BP 135/79
--- NOTE | 2017-03-28 11:23 | RO ---
DATE OF PROCEDURE: 03/27/2017 PROCEDURE: Implantation of loop recorder. IMPLANTING CORPORATE SECURITY MANAGER: Dr. Michi White ANESTHESIOLOGIST: Dr. Beverly PREOPERATIVE DIAGNOSES: 1. Nonsustained ventricular tachycardia. 2. Dilated cardiomyopathy. POSTOPERATIVE DIAGNOSES: 1. Nonsustained ventricular tachycardia. 2. Dilated cardiomyopathy. TYPE OF ANESTHESIA: Monitored local anesthesia. CLINICAL SUMMARY: This 67-year-old, , retired resident of [place], is well-known to my cardiology practice with dilated cardiomyopathy, congestive heart failure (systolic and diastolic) and nonsustained ventricular tachycardia. Is known to have an ejection fraction of 38%. Recent stress study showed no evidence of reversible myocardial perfusion defect. In light of his left ventricular dysfunction and documented nonsustained runs of ventricular tachycardia (event monitor February 12 through March 14, 2017), arrangements were made for an implantable recorder. At this point, he denies cardiovascular complaint. Moderately overweight, slightly barrel-chested elderly male laying comfortably. Heart rate 74 beats per minute and regular, blood pressure 108/54, respiratory rate 16 per minute and BMI 29.7. No pallor or cyanosis. Normal oral moisture. Trachea midline. Neck veins were 4 cm above the sternal angle. Slightly increased anteroposterior chest diameter with good air entry over both lung alvarado and no inspiratory rales. Slight prolongation of aspiration but no audible wheeze. Apical impulse not palpable. Distant heart sounds. One mm pitting edema two-thirds up both lower legs. Soft, nontender abdomen. Normal pedal pulses. EKG February 11, 2017 showed sinus rhythm at 72 beats per minute. Left atrial conduction disturbance with left axis deviation, low voltages with poor precordial R-wave progression, persistent S waves in V5-V6 and Q-waves in III and aVF; body habitus versus pulmonary disease, rule out prior AWMI/IWMI. Nonspecific ST/T-wave abnormalities. DESCRIPTION OF PROCEDURE: In the fasting state following informed consent, the patient was taken to the operating theater. Numerous skin electrodes were applied for electrocardiographic monitoring. The left precordial region was prepped and draped in the usual fashion. The skin in the parasternal region at the level of the third intercostal space was infiltrated with 1% Xylocaine. Using a special scaple tool, a 1 cm incision was made at the same point. A [employer] introducing instrument was then placed in the incision and pushed manually to it's hub, orientated toward his left nipple. Once this was in place, his loop recorder was then advanced under the skin. Pressure was applied over the incision site for 5 minutes, then we applied Steri -Strips, followed by a small telfa gauze and OpSite dressing. The patient was returned to recovery room in good condition. Estimated blood loss less than 1 mL. No apparent complications. The patient will be asked to perform only light activities daily living with his left arm and avoid getting his incision wet until his wound check appointment in my office April 05, 2017 at 09:30 a.m. He is to resume his customary modest salt diet. Medications were to resume carvedilol 6.25 mg twice a day, lisinopril 5 mg daily , spironolactone 12.5 mg daily, aspirin 81 mg daily, atorvastatin 40 mg at night, Januvia 100 mg by mouth daily and multivitamin 1 tablet daily. He was encouraged to contact us promptly for any abnormal erythema, swelling or discharge. QI
== END 2017-03-27 15:56 | disposition home or self-care (01) ==
LOC: M SDC 12:44
PROVIDERS: ATTEND Internal Medicine Cardiovascular Disease
DX: I47.2 Ventricular tachycardia (principal); I42.0 Dilated cardiomyopathy; R94.31 Abnormal electrocardiogram [ECG] [EKG]; G47.9 Sleep disorder, unspecified; E78.00 Pure hypercholesterolemia, unspecified; E66.3 Overweight; I10 Essential (primary) hypertension; E11.9 Type 2 diabetes mellitus without complications; Z88.0 Allergy status to penicillin; Z79.899 Other long term (current) drug therapy; Z79.82 Long term (current) use of aspirin; Z87.891 Personal history of nicotine dependence
CPT/HCPCS: 33282; C1764; J2250; J3010

== ENCOUNTER → 2017-06-11 | Outpatient (REF) | payer MEDICARE ==
[2017-06-11 14:06] LABS: GAMMA GLUTAMYLTRANSPEPTIDASE 45 U/L (15-85)
== END ==
LOC: M LAB REF 13:30
DX: F10.21 Alcohol dependence, in remission (principal)
CPT/HCPCS: 82977

== ENCOUNTER → 2017-12-09 | Outpatient (REF) | payer MEDICARE ==
[2017-12-09 11:36] LABS: GAMMA GLUTAMYLTRANSPEPTIDASE 44 U/L (15-85)
== END ==
LOC: M LAB REF 10:43
DX: F10.21 Alcohol dependence, in remission (principal)
CPT/HCPCS: 82977

== ENCOUNTER → 2018-05-12 | Outpatient (REF) | payer MEDICARE ==
[~2018-05-12] MED LIST changes: +SPIR-10 PO; -SPIR25TA2 PO
== END ==
LOC: M LAB REF 12:04
PROVIDERS: ATTEND Internal Medicine
DX: K70.10 Alcoholic hepatitis without ascites (principal)

== ENCOUNTER → 2018-08-06 | Outpatient (CLI) | payer MEDICARE ==
[~2018-08-06] MED LIST changes: -/OXAZ10CA; -/PANT40TA; +OXAZ10CA25; +PROT1TAB2
== END ==
LOC: M SLEEP HO 10:47
PROVIDERS: ATTEND Internal Medicine Pulmonary Disease
DX: G47.30 Sleep apnea, unspecified (principal)

== ENCOUNTER → 2019-04-27 | Outpatient (REF) | payer MEDICARE | LOC: M LAB REF 10:49 | PROVIDERS: ATTEND Internal Medicine | DX: K70.10 Alcoholic hepatitis without ascites (principal) ==

== ENCOUNTER → 2021-01-05 | Outpatient (CLI) | payer MEDICARE ==
[~2021-01-05] MED LIST changes: +ECOT81TA5 PO; +INVO100T PO; +LOSA25TA14 PO; +METF500T13 PO
== END ==
LOC: M LABSMTC 10:11
PROVIDERS: ATTEND Anesthesiology
DX: Z01.812 Encounter for preprocedural laboratory examination (principal); Z20.822 Contact with and (suspected) exposure to COVID-19

== ENCOUNTER → 2021-01-10 | Day surgery (SDC) | payer MEDICARE ==
[~2021-01-10] VITALS: Ht 170.2 cm; Wt 83.9 kg
[~2021-01-10] MED LIST changes: +LIDOCAINE 1% MDV 20ML VIAL SQ PRN; +LIDOCAINE 1% SDV 30ML VIAL As Ordered ONE; +LIDOCAINE 2% 100MG/5ML SDV (FOR ANES.) As Ordered ONE; +LR 1,000 ML IV ONE; +MIDAZOLAM INJ 2MG/2ML VIAL (J2250 PER 1MG) As Ordered ONE; +fentaNYL 100 MCG/2 ML INJECTION (J3010) As Ordered ONE; +propofoL 200 MG/20 ML VIAL As Ordered ONE
[2021-01-10 16:44] VITALS: BP 136/70
--- NOTE | 2021-01-10 17:22 | RO ---
OPERATIVE NOTE DATE OF OPERATION: 01/10/2021 PREOPERATIVE DIAGNOSIS: 1. Depletion of implantable loop recorder. 2. Nonsustained ventricular tachycardia. 3. Dilated cardiomyopathy. POSTOPERATIVE DIAGNOSIS: 1. Depletion of implantable loop recorder. 2. Nonsustained ventricular tachycardia. 3. Dilated cardiomyopathy. PROCEDURE: Explantation of depleted implantable loop recorder. IMPLANTING SURGEON: Michi White M.D. DRAWBENCH OPERATOR: ANESTHESIOLOGIST: Dr. Wills ANESTHESIA: Monitored local anesthesia. CLINICAL SUMMARY: This 70-year-old, retired resident of [place], [place] is well known to our cardiology practice having a dilated cardiomyopathy since 1996 complicated by abnormal EKG, heart failure (systolic and diastolic) and nonsustained ventricular tachycardia. On March 27, 2017, an implantable loop recorder was placed ([employer]). In the interim, he has done quite well with last echocardiogram December 21, 2019 showing left ventricle upper limits of normal with slight hypokinesis globally, LVEF of 48%, dilated left atrium with LV diastolic dysfunction but currently normal estimated mean left atrial pressure. Borderline pulmonary hypertension. Normal central venous pressure, mild degenerative changes of both mitral and aortic valvular apparatus without functional abnormality. Function appeared to be improved from February of 2017. Last seen in my office November 03, 2020. His loop recorder has shown as said brief nonsustained, relatively slow runs of ventricular tachycardia. He has been free of any symptomatic arrhythmia. At this point, he tries to keep active riding his stationary bicycle and walking and is free of cardiovascular complaint. He has a history of obstructive sleep apnea and does well with CPAP therapy. On examination, he is a slightly overweight, slightly barrel-chested, elderly male lying comfortably, heart rate 71 beats per minute and regular, blood pressure 122/80, respiratory rate 16, BMI 30.2, no pallor or cyanosis. Trachea midline, neck veins currently 2 cm above the sternal angle. Slightly increased anterior-posterior chest diameter with good air entry over both lung alvarado with no abnormal pulmonary adventitious sounds. Apical impulse not palpable. Heart sounds show normal S1 and slightly accentuated S2 but no audible gallop or murmur at this time. Normal carotid upstrokes and volume. Soft abdomen. No current pedal edema, normal pedal pulses. EKG showed sinus rhythm at 71 BPM with isolated PVC. Left atrial conduction disturbance with left axis deviation. Poor precordial R wave progression and low voltages in keeping with his body habitus. No change from September of 2019. Blood work showed a hemoglobin of 15.4, normal white blood cell count and platelet count, electrolytes were normal with BUN 19, creatinine 0.8, random glucose was slightly elevated at 184. DESCRIPTION OF PROCEDURE: In the fasting state following Ancef 2 gm IV premedication and informed consent, the patient was taken to the operating theater. Numerous skin electrodes were applied to facilitate continuous electrocardiographic monitoring. The small left peristernal healed incision was prepped and draped in the usual fashion. The small incision was then infiltrated with 1% Xylocaine. A 1 cm incision was then made over the same site and careful dissection was carried down to the depleted loop recorder which had migrated slightly southward. We were able to locate the device and remove it using a Kely clamp. The skin was closed with three lesely and a dry dressing was applied. The patient was taken to advanced recovery in good condition. No apparent complications, estimated blood loss 1 ml. The patient has been instructed to avoid getting his incision wet or change his dressing until he comes to our office January 20, 2021 at 8 a.m. His medications will continue, Losartan 25 mg daily, carvedilol 6.25 mg b.i.d., spironolactone 25 mg tablets, 1/2 tablet daily, aspirin 81 mg daily, atorvastatin 40 mg q.h.s., metformin 500 mg p.o. b.i.d., Jardiance 10 mg q.a.m. and a multivitamin. He was instructed to resume his no-added salt, low carbohydrate diet and activity can be a tolerated. We would encourage him to contact us promptly for any abnormal erythema, swelling or discharge.
== END | disposition home or self-care (01) ==
LOC: M SDC 13:29
PROVIDERS: ATTEND Internal Medicine Cardiovascular Disease
DX: Z45.09 Encounter for adjustment and management of other cardiac device (principal); I47.2 Ventricular tachycardia; I42.0 Dilated cardiomyopathy; I11.9 Hypertensive heart disease without heart failure; I50.9 Heart failure, unspecified; E11.9 Type 2 diabetes mellitus without complications; G47.33 Obstructive sleep apnea (adult) (pediatric); F10.11 Alcohol abuse, in remission; E78.00 Pure hypercholesterolemia, unspecified; K57.90 Diverticulosis of intestine, part unspecified, without perforation or abscess without bleeding; Z79.84 Long term (current) use of oral hypoglycemic drugs; Z79.82 Long term (current) use of aspirin; Z79.899 Other long term (current) drug therapy; Z88.0 Allergy status to penicillin
CPT/HCPCS: 33286; J2250; J3010

== ENCOUNTER → 2023-03-24 | Outpatient (CLI) | payer MEDICARE ==
[~2023-03-24] MED LIST changes: -LIDOCAINE 1% MDV 20ML VIAL SQ PRN; -LIDOCAINE 1% SDV 30ML VIAL As Ordered ONE; -LIDOCAINE 2% 100MG/5ML SDV (FOR ANES.) As Ordered ONE; +LOSA25TA13 PO; -LOSA25TA14 PO; -LR 1,000 ML IV ONE; -MIDAZOLAM INJ 2MG/2ML VIAL (J2250 PER 1MG) As Ordered ONE; -fentaNYL 100 MCG/2 ML INJECTION (J3010) As Ordered ONE; -propofoL 200 MG/20 ML VIAL As Ordered ONE
== END ==
LOC: M SLEEP 20:00
PROVIDERS: ATTEND Nurse Practitioner Family
DX: G47.33 Obstructive sleep apnea (adult) (pediatric) (principal)